=== PATIENT | female | born 1940 | race Caucasian/White ===

== ENCOUNTER → 2016-11-04 | Day surgery (SDC) | payer MEDICARE ==
[~2016-11-04] MED LIST: BIOT50005 PO; BUPIVACAINE HCL PF 0.5% 30 ML VIAL ONE; LEXA20TA PO; LOMO2.5T PO; LOPE7.5C PO; LUTE6CAP2 PO; MULT-135 PO; PROPOFOL 200 MG/20 ML AMP IV ONE; ROSU10 PO; SYNT88TA PO; TRIAMCINOLONE ACETONIDE 40 MG/ML VIAL I-ARTICULR ONE
--- NOTE | 2016-11-07 12:11 | M6 ---
cc: LAWRENCE JAVED M.D. DATE 11/04/2016 DATE OF 1940 PROCEDURE Fluoroscopically guided injection bilateral cervical facet joints (bilateral C3-4, C4-5 and C5-6). History and physical was completed and signed. Consent was signed. Procedure site was marked. Medications were listed and reconciled. Pain score was recorded. Allergies were noted. Time out was taken. Fluoroscopy time was recorded where applicable. Sedation was administered or directed by Dr. Javed. The patient was given oxygen. The patient was monitored by a registered nurse. Total procedure time was greater than 15 minutes. PROCEDURE NOTE IV was started. Blood pressure cuff, pulse oximeter and EKG were applied. The patient was placed in the prone position on a Will table, sedated with small amounts of propofol titrated to effect. Vital signs were monitored and remained stable throughout the procedure. The cervical area was prepped with alcohol and 10% Betadine solution and draped with sterile drapes. Fluoroscopy was used to visualize the bilateral cervical facet joints at C3-4, C4-5 and C5-6. Separate sterile 3-1/2-inch, 25-gauge spinal needles were advanced into these joints under fluoroscopic guidance. There was negative aspiration for blood or any other type of fluid and at each location the patient was given 1 mL of 0.5% Marcaine, 10 mg of Kenalog. Following the procedure the patient was taken to the recovery room with stable vital signs, neurologically intact. She will be evaluated immediately and with followup to determine if she has a subjective decrease in her usual pain and a corresponding objective increase in her functional capabilities. W. MD LAUREN Arzate/BARRY /9:04 AM /12:08 PM
== END | disposition home or self-care (01) ==
LOC: PHSDC 07:01
PROVIDERS: ATTEND Pain Medicine Interventional Pain Medicine
DX: M54.2 Cervicalgia (principal)
CPT/HCPCS: 64490; 64491; 64492; 99152; J3301

== ENCOUNTER → 2017-12-04 | Outpatient (CLI) | payer MEDICARE, BC ==
[~2017-12-04] MED LIST changes: +BIOT10TA PO; -BUPIVACAINE HCL PF 0.5% 30 ML VIAL ONE; +CIPR-9 PO; -LOMO2.5T PO; +LOPE-1 PO; -PROPOFOL 200 MG/20 ML AMP IV ONE; +ROSU5 PO; -TRIAMCINOLONE ACETONIDE 40 MG/ML VIAL I-ARTICULR ONE; +VIIB20TA PO
[2017-12-04 10:35] LABS: BILIRUBIN, URINE NEG (NEG); BLOOD, URINE NEG (NEG); GLUCOSE,URINE NEG (NEG); KETONE, URINE NEG (NEG); NITRITE,URINE NEG (NEG); URINE COLOR YELLOW (YELLW/STRAW); URINE LEUKOCYTE ESTERASE NEG (NEG)
[2017-12-04 10:51] LABS: BICARBONATE 26.1 MEQ/L (21.0-32.0); CALCIUM 9.2 MG/DL (8.5-10.1); CREATININE 1.19 MG/DL (0.50-1.00)
[2017-12-04 10:56] LABS: HEMATOCRIT 38.6 % (35.0-46.0); HEMOGLOBIN 12.8 GM/DL (11.6-15.3); MEAN CELL VOLUME 95.1 FL (80.0-100.0); MEAN CORPUSCULAR HEMOGLOBIN 31.6 PG (27.0-34.0); MEAN CORPUSCULAR HGB CONC 33.2 % (32.0-36.0); MEAN PLATELET VOLUME 9.5 FL (7.0-11.0); PLATELET COUNT 272 TH/MM3 (150-450); RED BLOOD COUNT 4.06 MIL/MM3 (4.00-5.30); RED CELL DISTRIBUTION WIDTH 14.1 % (11.6-17.2)
--- NOTE | 2017-12-06 23:25 | EKG ---
Date Performed: 12/04/2017 Time Performed: 08:35:10 PTAGE: 77 years EKG: Sinus rhythm NORMAL ECG NO PREVIOUS TRACING DOCTOR: Michele Salinas Interpretating Date/Time 12/06/2017 23:24:49
== END ==
LOC: CPRE 08:15
PROVIDERS: ATTEND Orthopaedic Surgery
DX: Z01.810 Encounter for preprocedural cardiovascular examination (principal); Z01.812 Encounter for preprocedural laboratory examination; Z01.818 Encounter for other preprocedural examination; M17.12 Unilateral primary osteoarthritis, left knee; M79.609 Pain in unspecified limb; S83.232A Complex tear of medial meniscus, current injury, left knee, initial encounter; M22.42 Chondromalacia patellae, left knee; M94.262 Chondromalacia, left knee; M71.21 Synovial cyst of popliteal space [Baker], right knee; X58.XXXA Exposure to other specified factors, initial encounter
CPT/HCPCS: 36415; 80048; 81001; 85027; 85610; 85730; 93005

== ENCOUNTER 2017-12-25 05:13 | Inpatient (IN) | payer MEDICARE, BC ==
[~2017-12-25] VITALS: Ht 172.7 cm; Wt 63.0 kg
[~2017-12-25 05:13] MED LIST changes: -BIOT50005 PO; -LEXA20TA PO; -LOPE7.5C PO; -MULT-135 PO; -ROSU10 PO
[2017-12-25] MEDS ORDERED: CHLORHEXIDINE GLUCONATE 2 % 1 PACK (2 CLOTHS) TOPICAL PRN (05:45)
[2017-12-25] MEDS ORDERED: INSULIN HUMAN REGULAR 1,000 UNITS/10 ML VIAL SQ PRN (05:45)
[2017-12-25] MEDS ORDERED: SODIUM CHLORID 0.9% 500 ML IV PRN (05:45)
[2017-12-25] MEDS ORDERED: LACTATED RINGER'S 1000 ML IV PRN (05:45)
[2017-12-25] MEDS ORDERED: POVIDONE IODINE 5% (ANTISEPSIS KIT) 4 APPLICATIONS EACH NARE PRN (05:45)
[2017-12-25] MEDS ORDERED: CHLORHEXIDINE GLUCONATE 4% SOLN 120 ML BTL TOPICAL SCH (05:45)
[2017-12-25] MEDS ORDERED: METOPROLOL TARTRATE 25 MG TAB PO PRN (05:45)
[2017-12-25] MEDS ORDERED: SODIUM CHLORIDE 0.9% IV SCH ×2 (06:00→09:00)
[2017-12-25] MEDS ORDERED: EXPAREL PERI-ARTICULAR INJECTION (TOTAL VOL. 100 ML) P-ARTICULR SCH ×2 (06:00)
[2017-12-25] MEDS ORDERED: TRANEXAMIC ACID IV SCH ×2 (06:00→09:00)
[2017-12-25 06:04] VITALS: PULSE 91
[2017-12-25] MEDS ORDERED: GENTAMICIN SULFATE 80 MG/2 ML VIAL ONE (06:09)
[2017-12-25] MEDS ORDERED: FAT EMULSION 20% INJ 250 ML ONE (06:26)
[2017-12-25] MEDS ORDERED: BUPIVACAINE LIPOSOME PF 1.3% 20 ML VIAL ONE (06:29)
[2017-12-25] MEDS ORDERED: MIDAZOLAM HCL 5 MG/5 ML VIAL ONE (06:29)
[2017-12-25] MEDS ORDERED: BUPIVACAINE PF 0.75% DEX-WATER INJ 2 ML AMP ONE (06:31)
[2017-12-25] MEDS ORDERED: PROPOFOL 500 MG/50 ML INJ 50 ML ONE (06:32)
[2017-12-25] MEDS ORDERED: ceFAZolin INJ 1,000 MG VIAL ONE (06:35)
[2017-12-25] MEDS ORDERED: TRANEXAMIC ACID INJ 0 MG in SODIUM CHLORIDE 0.9% INJ 100 ML IV SCH (06:45)
[2017-12-25] MEDS ORDERED: MORPHINE SULFATE 4 MG/ML INJ IV PUSH PRN (06:45)
[2017-12-25] MEDS ORDERED: MAGNESIUM HYDROXIDE SUSP 30 ML CUP PO PRN (06:45)
[2017-12-25] MEDS ORDERED: ACETAMINOPHEN/HYDROcodone 325 MG/7.5 MG TAB PO PRN (06:45)
[2017-12-25] MEDS ORDERED: ONDANSETRON HCL 4 MG/2 ML VIAL IVP PRN (06:45)
[2017-12-25] MEDS ORDERED: Post-op Orders (for Pharmacy) XX ONE (06:45)
[2017-12-25] MEDS ORDERED: ECASA81 PO (06:48)
[2017-12-25] MEDS: LACTATED RINGER'S 1000 ML INJ 1,000 ML IV SCH ×2 (08:30→21:00)
[2017-12-25] MEDS ORDERED: ACETAMINOPHEN 1000 MG/100 ML 100 ML IV ONE (08:46)
--- NOTE | 2017-12-25 08:59 | PD.OP ---
Operative Report Date of Surgery: December 25, 2017 Preoperative Diagnosis: (1) Primary osteoarthritis of left knee Postoperative Diagnosis: (1) Primary osteoarthritis of left knee Procedure: Left total knee arthroplasty using [place] Triathlon prosthesis (uncemented). Anesthesia: Spinal with supplemental adductor canal block regional and local with Exparel Surgeon: Ramiro Van MD Supervisor Curing Room(s): SHY Montgomery Operation and Findings: Indications and Findings: This 77-year-old woman has had long-standing pain in her left knee nonresponsive to conservative measures. She has been diagnosed with arthritis in the knee. Anti-inflammatory agents, exercises and ambulatory supports have not helped. Physical findings showed relatively neutral alignment with some medial laxity, crepitation throughout the entire range of motion and pain predominantly in the medial and patellofemoral compartments. Radiographic findings showed changes consistent with arthritis throughout the knee with patellofemoral arthrosis especially, medial and lateral osteophytes. Operative findings: The patellofemoral compartment showed severe arthritis with erosion of the lateral aspect of the femoral condyle and lateral patella. There are osteophytes about the patellofemoral joint with eburnation and loss of articular cartilage. The medial compartment had irregular articular cartilage with areas of exposed subchondral bone in the tibia and femur and eburnation posteriorly on the tibia. The lateral compartment had osteophytes and areas of articular cartilage irregularity and erosion. The prosthesis used was a [place] Triathlon prosthesis. The femur was a size 4, cruciate retaining, uncemented. The tibial baseplate was a size 4 Tritanium with a 9 mm, cruciate retaining, X3 polyethylene spacer. The patella was a size 35 mm asymmetric Tritanium backed. The patient was brought to the clean-air operating suite. A spinal anesthetic was administered as well as a regional anesthetic by adductor canal block. The position was supine with a small bolster under the hip on the operative side. A pneumatic tourniquet was applied to the upper thigh. The lower extremity was then prepped with alcohol, Hibiclens and ChloraPrep and draped in the usual manner with the knee draped free. An appropriate timeout procedure was carried out. An incision was made from about 3 fingerbreadths above the superior medial pole of patella down the tibial tubercle on the medial side. The incision was deepened through the subcutaneous tissue to the retinacular structures which were exposed medially and laterally. A medial retinacular incision was then made from the superior middle pole of patella down the tibial tubercle and up into the quadriceps tendon splitting it longitudinally and the medial one third. The patella was reflected. The infrapatellar fat pad was debulked. The anterior cruciate ligament was excised. Medial and lateral meniscectomies were initiated. Fenestrations were made in the distal femur and proximal tibia for intramedullary referencing guides. The distal femoral cutting guide and jig were then assembled for a 5, 8 mm cut. When this was fit position and placed cutting block was stabilized with pins. The jig was removed. The distal femoral cut was then completed with the oscillating saw. The sizing guide was then positioned in place along Whitesides line and the epicondylar axis and stabilized with pins. The femoral size was then determined as noted above. The 4-in-1 cutting block was then positioned in place. Anterior and posterior cuts were made followed by posterior and anterior chamfer cuts taking care to prevent injury to ligamentous structures. Osteophytes were then trimmed from the distal femur. A bone plug was then placed into the fenestration of the distal femur. The proximal tibia was then exposed. The medial and lateral meniscectomies were completed. The proximal tibial cutting guide was then positioned in place and stabilized with a pin for rotation. The depth of cut was then verified with a stylus off the lateral side. The cutting block was stabilized with pins. The jig was removed. The depth of cut was then verified and adjusted appropriately with the use of the spacer block. The proximal tibial cut was then made with the oscillating saw taking care to prevent injury to neurovascular and ligamentous structures. Proximal tibial bone was removed. Local anesthetic was administered with Exparel in the posterior capsule. The tibial baseplate trial was then positioned in place. After verifying the appropriate size, the base plate trial was positioned in place along with its spacer. The femoral component was then impacted into place. The alignment was checked. The tibial baseplate was then pinned in place on the tibia. Attention was directed to the patella. The patella drill guide was positioned in place for the appropriate sized patella. Patellar drilling was then carried out. The trial patella was positioned in place. The knee was taken through a range of motion which was easily 0 extension to 150. The patella trial was removed. The femoral drill holes were made. The femoral trials were removed. The tibial spacer was removed. A bone plug was placed into the proximal tibia. The tibial punch was impacted through the proximal tibial punch guide. This was all removed followed by placement of the tibial drill guide. The tibial drill holes were then made. The guide was removed. The cut ends of bone were then cleaned with pulse lavage. The tibial baseplate was then impacted into place and seated appropriately. The spacer was inserted. The the femoral component was then impacted into place and seated appropriately. The patella component was then seated with the patellar vice and tightened appropriately. The knee was taken through a range of motion which was comparable to the previous range of motion with excellent stability in flexion and extension and appropriate patellofemoral tracking. The remainder of the Exparel was then injected throughout the knee as a local anesthetic. Drains were brought out the superior lateral aspect of the suprapatellar pouch. Wound closure then commenced using 0 Vicryl interrupted [id number] sutures for the capsular and fascial structures, 2-0 Vicryl interrupted simple sutures with buried knots for the subcutaneous tissues and 4- 0 Monocryl, continuous subcuticular closure for the skin. The wound was then dressed with Dermabond Prineo followed by Optifoam silver impregnated dressing. Sterile soft roll with a cooling pad and Jhon bandage from the base of the toes to mid thigh were then applied. Patient was then transferred from the operating room to the recovery room in satisfactory condition having tolerated procedure well. Counts are correct. Specimens: None. Estimated blood loss: 100 mL Terell Van MD (Charles) December 25, 2017 08:59
[2017-12-25] MEDS: LOPERAMIDE HCL 2 MG CAP PO SCH (09:00)
[2017-12-25] MEDS ORDERED: NON-FORMULARY DRUG (Biotin 10 MG) PO SCH (09:00)
[2017-12-25] MEDS ORDERED: NON-FORMULARY DRUG (Lutein 6 MG) PO SCH (09:00)
[2017-12-25] MEDS ORDERED: HYDR-3580 PO (09:02)
--- NOTE | 2017-12-25 09:02 | HHI.FF ---
Face to Face Verification Diagnosis: (1) Status post total left knee replacement Physical Therapy Gait training Knee: Total knee, Protocol: Left, Gait training, Full weight bearing Left LE Weight Bearing: WB as tolerated Left LE Range of Motion: Active ROM (Active, active assisted and passive range of motion, left knee. Range of motion goal is 0 extension to 135 of flexion. Range of motion in the operating room was 0 extension to 150 of flexion.) Nursing Nursing: Dressing changes Dressing Changes: Daily dressing change, Coverderm/Primapore Additional Instructions Do not remove Dermabond Prineo. Daily dressing changes began on postoperative day 7. I have seen patient Erin French on 12/25/17. My clinical findings support the need for the requested home health care services because: Ltd mobility - disease progression Limited ability to care for self High risk of falls I certify that my clinical findings support that this patient is homebound because: Post-op weakness Unsteady gait/balance Unsafe to leave home unassisted Terell Van MD (Charles) December 25, 2017 09:02
[2017-12-25] MEDS ORDERED: DO NOT ADM ANY ANTICOAGULANT DRUGS PRN (09:15)
[2017-12-25] MEDS ORDERED: *MEPERIDINE 25 MG INJ VIAL PERIprocedural Use ONLY ONE (09:52)
[2017-12-25] MEDS: KETOROLAC TROMETHAMINE 30 MG/ML (IVP) VIAL IVP SCH ×2 (09:55→16:03)
[2017-12-25] MEDS: ATORVASTATIN 10 MG TAB PO SCH (10:00)
--- NOTE | 2017-12-25 10:17 | RADRPT ---
EXAM DATE/TIME: 12/25/2017 09:23 [facility] COMPARISON: No previous studies available for comparison. INDICATIONS : Post-op left knee replacement. MEDICAL HISTORY : None. SURGICAL HISTORY : Total knee replacement, left. ENCOUNTER: Initial ACUITY: 1 day PAIN SCORE: Non-responsive. LOCATION: Left Knee FINDINGS: There is a total knee prosthesis in place. The hardware is well-placed. There is a suprasellar drain present. CONCLUSION: Good placement of surgical hardware. Pb Dias MD on December 25, 2017 at 10:14 Board Certified Radiologist. This report was verified electronically.
[2017-12-25 11:24] VITALS: BP 157/87; PULSE 89; RESP 18; TEMP 97.4; O2SAT 93
[2017-12-25] MEDS ORDERED: PHENYLEPH/NS 1000 MCG/10 ML SYR IV ONE (12:00)
[2017-12-25] MEDS ORDERED: LACTATED RINGER'S 1000 ML INJ 1,000 ML IV ONE (12:00)
[2017-12-25] MEDS ORDERED: ONDANSETRON HCL 4 MG/2 ML VIAL IV ONE (12:00)
[2017-12-25] MEDS ORDERED: PROPOFOL 200 MG/20 ML AMP IV ONE (12:00)
[2017-12-25] MEDS ORDERED: DEXAMETHASONE SOD PHOS 4 MG/ML VIAL IV ONE (12:00)
--- NOTE | 2017-12-25 14:26 | PD.CONS ---
HPI Service [facility] Consult Requested By Dr. Van Reason for Consult Medical Management Primary Care Physician Jorge Valle DO Diagnoses: (1) Primary osteoarthritis of left knee (2) Status post total left knee replacement History of Present Illness 77-year-old female with history of TIA, colitis, splenectomy underwent a left knee replacement today. She is resting comfortably in bed without complaints of pain. She is sleepy so her provides most of this history. She had a fall last September which aggravated her left knee arthritis, there was no resolution to the swelling and pain in many months so she decided to have a knee replaced. Review of Systems ROS Limitations: Clinical Condition Constitutional: DENIES: Fatigue, Fever, Chills Eyes: DENIES: Blurred vision, Eye pain, Vision loss Respiratory: DENIES: Cough, Wheezing, Hemoptysis, Sputum production, Shortness of breath Cardiovascular: DENIES: Chest pain, Palpitations, Syncope, Dyspnea on Exertion Gastrointestinal: DENIES: Abdominal pain, Black stools, Bloody stools, Constipation, Diarrhea, Nausea, Vomiting Musculoskeletal: COMPLAINS OF: Joint pain, Stiffness, DENIES: Muscle aches, Back pain, Neck pain Neurologic: DENIES: Abnormal gait, Headache, Localized weakness, Paresthesias, Seizures Psychiatric: DENIES: Anxiety, Confusion, Mood changes, Depression, Hallucinations Past Family Social History Allergies: Coded Allergies: Sulfa (Sulfonamide Antibiotics) (Unverified Allergy, Severe, ITCH, 12/25/17) penicillin G (Unverified Allergy, Intermediate, ITCHING/RASH, 12/25/17) chocolate flavor (Unverified Allergy, Mild, Hives, 12/04/17) Uncoded Allergies: WINE (Allergy, Mild, RED FACE; HIVES, 11/04/16) Past Medical History History of TIA, colitis, splenectomy Past Surgical History Splenectomy in 1997, hysterectomy, dental work Family History Positive family history of cancer in all sisters, variety of types Social History Drinks 3 glasses of wine per week, denies smoking Physical Exam Vital Signs Vital Signs Date Time Temp Pulse Resp B/P (MAP) Pulse Ox O2 Delivery O2 Flow Rate FiO2 12/25/17 11:24 97.4 89 18 157/87 (110) 93 12/25/17 10:53 Nasal Cannula 2.00 12/25/17 10:30 97.5 90 20 149/82 (104) 95 Nasal Cannula 2 12/25/17 10:15 88 20 152/82 (105) 95 Nasal Cannula 2 12/25/17 10:00 82 20 152/77 (102) 95 Nasal Cannula 2 12/25/17 09:45 88 20 162/85 (110) 98 Nasal Cannula 2 12/25/17 09:30 81 20 153/83 (106) 97 Nasal Cannula 2 12/25/17 09:14 97.6 82 20 162/78 (106) 97 Nasal Cannula 2 12/25/17 06:04 91 12/25/17 06:04 Nasal Cannula 2 12/25/17 05:58 98.0 93 18 161/84 (109) 97 Physical Exam GENERAL: This is a well-nourished, well-developed patient, in no apparent distress. SKIN: No rashes, ecchymoses or lesions. Cool and dry. HEAD: Atraumatic. Normocephalic. No temporal or scalp tenderness. EYES: Pupils equal round and reactive. Extraocular motions intact. No scleral icterus. No injection or drainage. ENT: Nose without bleeding, purulent drainage or septal hematoma. Throat without erythema, tonsillar hypertrophy or exudate. Uvula midline. Airway patent. NECK: Trachea midline. No JVD or lymphadenopathy. Supple, nontender, no meningeal signs. CARDIOVASCULAR: Regular rate and rhythm without murmurs, gallops, or rubs. RESPIRATORY: Clear to auscultation. Breath sounds equal bilaterally. No wheezes , rales, or rhonchi. GASTROINTESTINAL: Abdomen soft, non-tender, nondistended. No hepato-splenomegaly , or palpable masses. No guarding. MUSCULOSKELETAL: Extremities without clubbing, cyanosis, or edema. No joint tenderness, effusion, or edema noted. Left lower extremity under postsurgical wrap and undergoing passive flexion with machine. NEUROLOGICAL: Awake and alert. Cranial nerves II through XII intact. Motor and sensory grossly within normal limits. Five out of 5 muscle strength in all muscle groups. Normal speech. Assessment and Plan Problem List: (1) Primary osteoarthritis of left knee ICD Code: M17.12 - Unilateral primary osteoarthritis, left knee (2) Status post total left knee replacement ICD Code: Z96.652 - Presence of left artificial knee joint Assessment and Plan Left total knee replacement Patient tolerated the procedure well and is resting in bed pain-free, is at bedside Plan is for beginning physical therapy later today Anticoagulant recommendations per or so h/o splenectomy We will follow CBC in the a.m. h/o colitis No current distress, monitor for change h/o TIA Patient should attempt to ambulate as soon as possible Anticoagulants collections per orthopedic h/o hypothyroidism Continuing home dose of Synthroid Harvinder Montilla MD December 25, 2017 14:26
[2017-12-25 15:38] VITALS: O2SAT 93
[2017-12-25 15:52] VITALS: BP 131/80; PULSE 93; RESP 18; TEMP 97.3; O2SAT 95
[2017-12-25] MEDS: ACETAMINOPHEN/HYDROcodone 325 MG/7.5 MG TAB PO PRN (16:03)
[2017-12-25 21:00] VITALS: BP 123/67; PULSE 94; RESP 16; TEMP 98; O2SAT 92
[2017-12-25] MEDS ORDERED: ZOLPIDEM TARTRATE 5 MG TAB PO PRN (21:00)
[2017-12-26] MEDS: KETOROLAC TROMETHAMINE 30 MG/ML (IVP) VIAL IVP SCH ×3 (00:23→10:00)
[2017-12-26] MEDS: ACETAMINOPHEN/HYDROcodone 325 MG/7.5 MG TAB PO PRN ×3 (00:36→12:53)
[2017-12-26 01:23] VITALS: BP 118/64; PULSE 97; RESP 16; TEMP 98.2; O2SAT 92
[2017-12-26 04:42] VITALS: BP 133/67; PULSE 90; RESP 16; TEMP 97.9; O2SAT 95
[2017-12-26 05:17] LABS: AUTOMATED NEUTROPHIL # 10.4 TH/MM3 (1.8-7.7); BASOPHIL # 0.1 TH/MM3 (0-0.2); BASOPHIL % 0.4 % (0.0-2.0); HEMATOCRIT 31.1 % (35.0-46.0); HEMOGLOBIN 10.3 GM/DL (11.6-15.3); LYMPH % 13.3 % (9.0-44.0); LYMPHOCYTE # 1.9 TH/MM3 (1.0-4.8); MEAN CELL VOLUME 93.8 FL (80.0-100.0); MEAN CORPUSCULAR HEMOGLOBIN 30.9 PG (27.0-34.0); MEAN CORPUSCULAR HGB CONC 32.9 % (32.0-36.0); MEAN PLATELET VOLUME 9.3 FL (7.0-11.0); MONO % 13.5 % (0.0-8.0); MONOCYTE # 1.9 TH/MM3 (0-0.9); NEUT % 72.8 % (16.0-70.0); PLATELET COUNT 211 TH/MM3 (150-450); RED BLOOD COUNT 3.32 MIL/MM3 (4.00-5.30); WHITE BLOOD COUNT 14.3 TH/MM3 (4.0-11.0)
[2017-12-26 05:44] LABS: BICARBONATE 25.6 MEQ/L (21.0-32.0); CALCIUM 7.9 MG/DL (8.5-10.1); CREATININE 0.93 MG/DL (0.50-1.00)
[2017-12-26] MEDS ORDERED: LEVOTHYROXINE SODIUM 88 MCG TAB PO SCH (06:00)
--- NOTE | 2017-12-26 06:08 | PD.ORT.PN ---
Subjective Post Op Day #: 1 Subjective Remarks She is doing well. She has minimal pain. She is walking independently. Range of Motion 0 extension to 88 of flexion. Distance Walked 30 feet to the bathroom; then 145 feet with PT. Objective Vitals Vital Signs Date Time Temp Pulse Resp B/P (MAP) Pulse Ox O2 Delivery O2 Flow Rate FiO2 12/26/17 04:42 97.9 90 16 133/67 (89) 95 12/26/17 01:23 98.2 97 16 118/64 (82) 92 12/25/17 21:00 98.0 94 16 123/67 (85) 92 12/25/17 15:52 97.3 93 18 131/80 (97) 95 12/25/17 15:38 93 21 12/25/17 11:24 97.4 89 18 157/87 (110) 93 12/25/17 10:53 Nasal Cannula 2.00 12/25/17 10:30 97.5 90 20 149/82 (104) 95 Nasal Cannula 2 12/25/17 10:15 88 20 152/82 (105) 95 Nasal Cannula 2 12/25/17 10:00 82 20 152/77 (102) 95 Nasal Cannula 2 12/25/17 09:45 88 20 162/85 (110) 98 Nasal Cannula 2 12/25/17 09:30 81 20 153/83 (106) 97 Nasal Cannula 2 12/25/17 09:14 97.6 82 20 162/78 (106) 97 Nasal Cannula 2 I/O 12/25/17 12/25/17 12/25/17 12/26/17 12/26/17 12/26/17 07:00 15:00 23:00 07:00 15:00 23:00 Intake Total 1400 ml 500 ml Output Total 100 ml 230 ml 90 ml Balance 1300 ml 270 ml -90 ml Intake Oral 500 ml Other 1400 ml Drainage Total 230 ml 90 ml Estimated Blood Loss 100 ml # Voids 2 # Bowel Movements 1 Result Diagram: 12/26/17 0435 12/26/17 0435 Imaging Last 24 hours Impressions Knee X-Ray 12/25/17 0643 Signed Impressions: Service Date/Time: Monday, December 25, 2017 09:23 - CONCLUSION: Good placement of surgical hardware. Pb Dias MD Objective Remarks She is sitting out of bed in a chair. Her neurovascular status is intact. The dressing is dry and intact. Assessment & Plan Ortho Post Op Day #: 1 Problem List: (1) Primary osteoarthritis of left knee ICD Codes: M17.12 - Unilateral primary osteoarthritis, left knee Status: Resolved (2) Status post total left knee replacement ICD Codes: Z96.652 - Presence of left artificial knee joint Plan: Continue postop care and PT. Assessment and Plan Condition: Good. Orthopedically stable. DVT prophylaxis: TEDs, aspirin, sequentials. Discharge plans: Home with home health care. An appointment was scheduled through the office. Prescriptions: [place] 7.5/325 Terell Van MD (Charles) December 26, 2017 06:08
[2017-12-26 07:31] VITALS: BP 135/67; PULSE 93; RESP 19; TEMP 97.7; O2SAT 93
[2017-12-26] MEDS: LOPERAMIDE HCL 2 MG CAP PO SCH (07:48)
[2017-12-26] MEDS: ATORVASTATIN 10 MG TAB PO SCH (07:50)
[2017-12-26] MEDS ORDERED: ASPIRIN EC 81 MG TABEC PO SCH (08:00)
[2017-12-26] MEDS: LACTATED RINGER'S 1000 ML INJ 1,000 ML IV SCH (08:41)
[2017-12-26] MEDS ORDERED: VIIBRYD 20 MG PO SCH (09:00)
--- NOTE | 2017-12-26 09:42 | HHI.PR ---
Subjective Remarks Follow-up for left TKA. Patient seen sitting upright in bedside chair. She has no specific medical complaints. Denies any fevers/chills, chest pain, shortness of breath, abdominal complaints. She states her knee pain is fairly well controlled. She feels ready for discharge. Objective Vitals Vital Signs Date Time Temp Pulse Resp B/P (MAP) Pulse Ox O2 Delivery O2 Flow Rate FiO2 12/26/17 08:47 17 12/26/17 07:31 97.7 93 19 135/67 (89) 93 12/26/17 04:42 97.9 90 16 133/67 (89) 95 12/26/17 01:23 98.2 97 16 118/64 (82) 92 12/25/17 21:00 98.0 94 16 123/67 (85) 92 12/25/17 15:52 97.3 93 18 131/80 (97) 95 12/25/17 15:38 93 21 12/25/17 11:24 97.4 89 18 157/87 (110) 93 12/25/17 10:53 Nasal Cannula 2.00 12/25/17 10:30 97.5 90 20 149/82 (104) 95 Nasal Cannula 2 12/25/17 10:15 88 20 152/82 (105) 95 Nasal Cannula 2 12/25/17 10:00 82 20 152/77 (102) 95 Nasal Cannula 2 12/25/17 09:45 88 20 162/85 (110) 98 Nasal Cannula 2 I/O 12/25/17 12/25/17 12/25/17 12/26/17 12/26/17 12/26/17 07:00 15:00 23:00 07:00 15:00 23:00 Intake Total 1400 ml 500 ml Output Total 100 ml 230 ml 90 ml Balance 1300 ml 270 ml -90 ml Intake Oral 500 ml Other 1400 ml Drainage Total 230 ml 90 ml Estimated Blood Loss 100 ml # Voids 2 # Bowel Movements 1 Result Diagram: 12/26/17 0435 12/26/17 0435 Imaging Last Impressions Knee X-Ray 12/25/17 0643 Signed Impressions: Service Date/Time: Monday, December 25, 2017 09:23 - CONCLUSION: Good placement of surgical hardware. Pb Dias MD Objective Remarks GENERAL: Well-nourished, well-developed pleasant female patient in NAD. SKIN: Warm and dry. No rash. HEENT: Normocephalic. Atraumatic. Pupils equal and round. Mucous membranes pink and moist. CARDIOVASCULAR: Regular rate and rhythm. No murmur appreciated. RESPIRATORY: No accessory muscle use. Clear to auscultation. Breath sounds equal bilaterally. GASTROINTESTINAL: Abdomen soft, non-tender, nondistended. Normoactive bowel sounds x4. MUSCULOSKELETAL: No obvious deformities. Extremities without clubbing, cyanosis , or edema. Left knee surgical dressing, CDI. NEUROLOGICAL: Awake and alert. No obvious cranial nerve deficits. Motor grossly within normal limits. Moving all extremities spontaneously. Normal speech. PSYCHIATRIC: Appropriate mood and affect; insight and judgment normal. Procedures 12/25/17: Left total knee arthroplasty by Dr. Van Medications and IVs Current Medications Medications (Trade) Dose Ordered Sig/Chase Route Start Time Stop Time Status Last Admin Lactated Ringer's 1,000 ml @ 30 mls/hr Q24H PRN IV 12/25/17 05:45 12/28/17 05:44 12/25/17 06:10 Sodium Chloride 500 ml @ 30 mls/hr [id number] PRN IV 12/25/17 05:45 12/28/17 05:44 (Lopressor) 25 mg SUPERINTENDENT METERS PRN PO 12/25/17 05:45 12/28/17 05:44 (Betadine 5% Antisepsis Kit) 1 applic SUPERINTENDENT METERS PRN EACH NARE 12/25/17 05:45 12/28/17 05:44 12/25/17 06:05 (Chlorhexidine 2% Cloth) 3 pack SUPERINTENDENT METERS PRN TOPICAL 12/25/17 05:45 12/28/17 05:44 12/25/17 05:30 (NovoLIN R INJ) See Protocol Table ... SUPERINTENDENT METERS PRN SQ 12/25/17 05:45 12/28/17 05:44 (Hibiclens 4% Top Soln) 1 applic ONCE TOPICAL 12/25/17 05:45 12/28/17 05:44 12/25/17 06:00 Lactated Ringer's 1,000 ml @ 80 mls/hr [id number] IV 12/25/17 08:30 12/25/17 08:30 (Morphine Inj) 4 mg Q3H PRN IV PUSH 12/25/17 06:45 12/25/17 12:30 ([place] 7.5-325 Mg) 1 tab Q4H PRN PO 12/25/17 06:45 12/26/17 12:53 ([place] 7.5-325 Mg) 2 tab Q4H PRN PO 12/25/17 06:45 12/25/17 20:51 (Toradol Inj) 15 mg Q6H IVP 12/25/17 10:00 12/27/17 04:01 12/26/17 04:55 (Zofran Inj) 4 mg Q6H PRN IVP 12/25/17 06:45 (Colace) 100 mg BID PO 12/26/17 21:00 (Ambien) 5 mg HS PRN PO 12/25/17 21:00 (Milk Of Magnabel Liq) 30 ml DAILY PRN PO 12/25/17 06:45 (Ecotrin Ec) 81 mg BID PO 12/26/17 08:00 12/26/17 07:48 (Synthroid) 88 mcg DAILY@0600 PO 12/26/17 06:00 12/26/17 05:20 (Imodium) 2 mg DAILY PO 12/25/17 09:00 12/26/17 07:48 (Lipitor) 10 mg DAILY PO 12/25/17 10:00 Patient Own Medication PT OWN MED: [id number] (VILAZODO... DAILY PO 12/26/17 09:00 Future Hold A/P Problem List: (1) Primary osteoarthritis of left knee ICD Code: M17.12 - Unilateral primary osteoarthritis, left knee Status: Resolved (2) Status post total left knee replacement ICD Code: Z96.652 - Presence of left artificial knee joint Assessment and Plan 77-year-old female with history of TIA, colitis, splenectomy, admitted for left total knee arthroplasty by Dr. Van. Hospitalist consulted for medical management. Osteoarthritis s/p Left total knee arthroplasty: surgery done 12/25/[address]. -Continue pain control per ortho -Continue PT -DVT prophylaxis per ortho, discharging on aspirin 81mg bid Hx of IBS/Colitis: no acute complaints -continue patient's Imodium prn -outpatient f/up Hx of Splenectomy: chronic -CBC stable -outpatient f/up Hypothyroidism: chronic -continue patient's Synthroid DVT Prophylaxis: per Claudia Morataya PA-C December 26, 2017 9:42 am
--- NOTE | 2017-12-26 10:08 | HHI.DS ---
Discharge Summary Admission Date December 25, 2017 at 05:13 Discharge Date: December 26, 2017 Admitting Diagnosis Primary osteoarthritis, left knee. Diagnosis: (1) Primary osteoarthritis of left knee Diagnosis: Principal ICD Codes: M17.12 - Unilateral primary osteoarthritis, left knee Status: Resolved (2) Status post total left knee replacement Diagnosis: Principal ICD Codes: Z96.652 - Presence of left artificial knee joint Procedures Left total knee arthroplasty using [employer] prosthesis (uncemented) on 12/25/2017. Brief History This is a 77 year old female patient has had long-standing arthritis in the left knee which has been progressively worsening over the past several months. She has difficulty with ambulation and pain on activities of daily living. Conservative, nonoperative methods have been unsuccessful to date. Physical findings showed significant arthritis clinically with laxity in the medial compartment. X-ray showed significant arthritis with loss of articular cartilage to bone on bone particularly in the medial compartment. There is tricompartmental arthritis. CBC/BMP: 12/26/17 0435 12/26/17 0435 Significant Findings Laboratory Tests Test 12/26/17 04:35 White Blood Count 14.3 TH/MM3 (4.0-11.0) Red Blood Count 3.32 MIL/MM3 (4.00-5.30) Hemoglobin 10.3 GM/DL (11.6-15.3) Hematocrit 31.1 % (35.0-46.0) Neutrophils (%) (Auto) 72.8 % (16.0-70.0) Monocytes (%) (Auto) 13.5 % (0.0-8.0) Neutrophils # (Auto) 10.4 TH/MM3 (1.8-7.7) Monocytes # (Auto) 1.9 TH/MM3 (0-0.9) Random Glucose 110 MG/DL (74-106) Calcium Level 7.9 MG/DL (8.5-10.1) Chloride Level 109 MEQ/L (98-107) Estimat Glomerular Filtration Rate 59 ML/MIN (>89) Imaging Last 72 hours Impressions Knee X-Ray 12/25/17 0643 Signed Impressions: Service Date/Time: Monday, December 25, 2017 09:23 - CONCLUSION: Good placement of surgical hardware. Pb Dias MD PE at Discharge She is sitting out of bed in a chair. Her neurovascular status is intact. The dressing is dry and intact. Hospital Course The patient was admitted as noted above. The above noted operative procedure was carried out that day. Preoperatively prophylactic antibiotics were administered Ancef according to protocol. These were continued postoperatively. The patient also received tranexamic acid to help with hemostasis according to protocol. In the postanesthesia care unit a continuous passive motion device was initiated. Also initiated were mechanical methods of DVT prophylaxis in the form of KATHRYN stockings and sequentials. Physical therapy was initiated on the day of surgery. She was able to walk 30 feet and then 145 feet with physical therapy on the day of surgery. On postoperative day #1 physical therapy continued. The use of the continuous passive motion device continued. DVT prophylaxis with aspirin 81 mg twice daily was initiated at this time. The patient continued physical therapy throughout the hospitalization. The distance walked and range of motion improved throughout the hospitalization. The patient was discharged on postoperative day 1 with the disposition being to home with home health care. An appointment for follow-up was made prior to admission. Pt Condition on Discharge: Good Discharge Disposition: Disch w/ Home Health Serv Discharge Instructions Diet Instructions: As Tolerated, No Restrictions Activities You Can Perform: Full Weight Bearing, Shower Only-No Bath Activities to Avoid: Lifting/Bending, Strenuous Activity, Bathing, Driving Follow up Referrals: Orthopedics with Terell Van MD ([place]) [facility]/ with [facility] New Medications: Aspirin DR (Aspirin DR) 81 Mg Tabdr 81 MG PO BID for Prevent Blood Clot for 30 Days, #60 TAB Hydrocodone/Acetaminophen (Hydrocodone-Acetamin 7.5-325) 7.5 Mg-325 Mg Tablet 1 TAB PO Q4H PRN for PAIN SCALE 1 TO 10, #30 TAB Continued Medications: Biotin (Biotin) 10 Mg Tab 10 MG PO DAILY for Nutritional Supplement, #1 BOTTLE 0 Refills Levothyroxine (Synthroid) 88 Mcg Tab 88 MCG PO DAILY for Thyroid, #30 TAB 0 Refills Loperamide (Imodium A-D) 2 Mg Capsule 2 MG PO DAILY, CAP 0 Refills One capsule after each loose stool. Not to exceed 8 tablets per day. Lutein (Lutein) 6 Mg Cap 6 MG PO DAILY for Nutritional Supplement, CAP 0 Refills Rosuvastatin (Crestor) 5 Mg Tab 5 MG PO DAILY for Cholesterol Management, #30 TAB 0 Refills Vilazodone (Viibryd) 20 Mg Tab 20 MG PO DAILY for Control Depression, #30 TAB 0 Refills Terell Van MD ([place]) December 26, 2017 10:08
[2017-12-26 10:38] VITALS: O2SAT 95
[2017-12-26 11:24] VITALS: BP 117/71; PULSE 92; RESP 19; TEMP 97.7; O2SAT 95
[2017-12-26] MEDS ORDERED: DOCUSATE SODIUM 100 MG CAP PO SCH (21:00)
== END 2017-12-26 15:30 | disposition home health service (06) | DRG 470 ==
LOC: HSDI 05:13 → N06B 10:47
PROVIDERS: ADMIT Orthopaedic Surgery; ATTEND Orthopaedic Surgery
PROC: 3E0T3BZ Introduction of Anesthetic Agent into Peripheral Nerves and Plexi, Percutaneous Approach (ICD-10-PCS; 2017-12-25)
PROC: 0SRD0JA Replacement of Left Knee Joint with Synthetic Substitute, Uncemented, Open Approach (ICD-10-PCS; principal; 2017-12-25 06:42)
DX: M17.12 Unilateral primary osteoarthritis, left knee (principal); E03.9 Hypothyroidism, unspecified; Z86.73 Personal history of transient ischemic attack (TIA), and cerebral infarction without residual deficits; Z80.9 Family history of malignant neoplasm, unspecified; Z90.81 Acquired absence of spleen
CPT/HCPCS: 73560; 80048; 85025; 86850; 86900; 86901; 94150; C1776; C9290; J0131; J0690; J1100; J1580; J1885; J2175; J2250; J2270; J2370; J2405; J7120; L1830